=== PATIENT | female | born 1960 | race Two or more races ===

== ENCOUNTER 2022-09-19 08:42 | Emergency (ER) | payer OTHER ==
[~2022-09-19] VITALS: Ht 160 cm; Wt 72.6 kg
[2022-09-19] MEDS ORDERED: COZAAR50 MG PO (08:53)
[2022-09-19] MEDS ORDERED: CIPRO500 MG PO (14:04)
[2022-09-19] MEDS ORDERED: INTESTINEX680 M1 PO (14:04)
== END 2022-09-19 14:34 | disposition home or self-care (01) ==
LOC: ER 08:42
DX: K52.9 Noninfective gastroenteritis and colitis, unspecified (principal); N20.0 Calculus of kidney

== ENCOUNTER 2022-09-20 12:12 | Inpatient (IN) | payer OTHER ==
[~2022-09-20] VITALS: Ht 160 cm; Wt 72.6 kg
[~2022-09-20 12:12] MED LIST: CIPRO500 MG PO; COZAAR50 MG PO; INTESTINEX680 M1 PO
--- NOTE | 2022-09-20 12:19 | NUR ---
SE RECIBE PTE ALERTA Y ORIENTADA X3 EN COMPANIA DE FAMILIAR, PTE REFIERE VENIR CAROLINE POR DOLOR ABDOMINAL Y REFIERE QUE DR. CASTRO INFORMO QUE LA PASARA A JARROD DE EMERGENCIAS PARA EVALUARLA. SE RAUDEL VITALES Y SE JAYCEE EN JARROD DE ESPERA.
--- NOTE | 2022-09-20 13:03 | NUR ---
SE ORIENTA A PACIENTE SOBRE TRATAMIENTO LA MISMA REFIERE ENTENDER. SE CANALIZA EN BRAZO DERECHO CON AGIO #[id number], SE RAUDEL MEDIDAS ASEPTICA. SE LE RAUDEL MUESTRAS DE LABORATORIO KIRSTEN ORDEN MEDICA, SE RAUDEL MEDIDAS ASEOTICAS. SE LE JAYCEE ENVASE PARA MUESTRA DE ORINA , PEDIENTE A ENTREGAR.
[2022-09-22] MEDS ORDERED: PROGESTERONE200 MG (09:57)
[2022-09-23] MEDS ORDERED: INTESTINEX680 M1 PO (08:02)
[2022-09-23] MEDS ORDERED: PEPCID AC20 MG PO (08:02)
[2022-09-23] MEDS ORDERED: LEVSIN/SL0.125 MG SL (08:03)
== END 2022-09-23 09:24 | disposition home or self-care (01) | DRG 386 ==
LOC: ER 12:12 → OB/GYN 13:24
PROVIDERS: ADMIT Surgery; ATTEND Surgery
PROC: BW21ZZZ Computerized Tomography (CT Scan) of Abdomen and Pelvis (ICD-10-PCS; principal; 2022-09-19)
DX: K51.00 Ulcerative (chronic) pancolitis without complications (principal); K90.49 Malabsorption due to intolerance, not elsewhere classified; K52.9 Noninfective gastroenteritis and colitis, unspecified; I10 Essential (primary) hypertension